=== PATIENT | male | born 1985 | race Caucasian/White ===

== ENCOUNTER 2016-11-06 20:17 | Emergency (ER) | payer OTHER, MEDICAID ==
[2016-11-06 20:26] VITALS: BP 112/70; PULSE 90; RESP 16; TEMP 97.7; O2SAT 93
--- NOTE | 2016-11-06 21:21 | EDPHY ---
H & P Stated Complaint: upper abd pain for weeks worse today Time Seen by Provider: 11/06/16 20:58 HPI/ROS: CHIEF COMPLAINT: Abdominal pain x9 months HISTORY OF PRESENT ILLNESS: 31-year-old male complaining of intermittent abdominal pain. He describes the abdominal pain is worse when he turns on his bluetooth device, the pain resolves when he turns off his bluetooth device in his car. He currently is asymptomatic. At no point has he developed nausea, vomiting, melena, hematochezia. He ate [employer] before coming to the ER which he tolerated well. Denies suicidal or homicidal ideation. Denies alcohol or drug use. 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 Appears to be in no acute distress. 2) HEAD: Normocephalic, atraumatic 3) HEENT: Sclera anicteric. 4) NECK: Full range of motion, no meningeal signs. 5) LUNGS: Clear auscultation bilaterally, no wheezes, no rhonchi, no retractions. 6) HEART: Regular rate and rhythm, no murmur, no heave, no gallop. 7) ABDOMEN: No guarding, no rebound, no focal tenderness, negative McBurney's, negative Ahumada's, negative Rovsing's, negative peritoneal sign, I am unable to elicit any abdominal pain on exam 8) MUSCULOSKELETAL: Moving all extremities, no focal areas of tenderness, no obvious trauma. No peripheral edema or discoloration. 9) BACK: noted scoliosis.No CVA tenderness. 10) SKIN: No rash, no petechiae. 11) Psychiatric: Patient is oriented X 3, there is no agitation. DIFFERENTIAL DIAGNOSIS: My differential diagnosis includes, but is not limited to, acute appendicitis, acute cholecystitis, bowel obstruction, acute pancreatitis, , gastritis and urinary tract infection. The patient understands that this diagnosis is provisional and can never be 100% accurate. This is a partial list of diagnoses considered. These considerations are based on history , physical exam, past history and reassessment. 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, spinal fusion, scoliosis, asthma, - Social History Smoking Status: Former smoker Constitutional: Initial Vital Signs Temperature (C) 36.5 C 11/06/16 20:23 Heart Rate 90 11/06/16 20:23 Respiratory Rate 16 11/06/16 20:23 Blood Pressure 112/70 11/06/16 20:23 O2 Sat (%) 93 11/06/16 20:23 O2 Delivery Mode Room Air Allergies/Adverse Reactions: Penicillins Allergy (Verified 11/06/16 20:26) Home Medications: Medication Instructions Recorded Albuterol 11/06/16 EXCEDRIN EXTRA STRENGTH CAPLET 11/06/16 Symbicort 80-4.5 Mcg Inhaler 11/06/16 Medical Decision Making ED Course/Re-evaluation: he is asymptomatic while in the ER and states that his pain happens when he turns on his bluetooth device. I do not think the patient meets criteria for mental health hold. Doubt acute surgical abdominal pathology. Doubt acute appendicitis, doubt acute pancreatitis, doubt acute cholecystitis. Do not identify emergent condition requiring further evaluation or diagnostic station wrist department. However, I did emphasize and recommend he establish primary care and follow up with a shipyard painting supervisor. Departure - Departure Disposition: Home, Routine, Self-Care Clinical Impression: Abdominal pain Qualifiers: Abdominal location: generalized Qualified Code(s): R10.84 - Generalized abdominal pain Condition: Good Instructions: Acute Abdominal Pain (ED) Referrals: David Loyd DO [Medical Doctor] - 2-3 days, call for appt. (Dr. David Loyd is a primary care provider) Sae Larios MD [[facility] [place]] - 2-3 days, call for appt. (Dr. Larios is a shipyard painting supervisor)
== END 2016-11-06 21:15 | disposition home or self-care (01) ==
DX: R10.84 Generalized abdominal pain (principal); J45.909 Unspecified asthma, uncomplicated; Z87.891 Personal history of nicotine dependence

== ENCOUNTER 2016-11-28 22:50 | Emergency (ER) | payer OTHER, MEDICAID ==
--- NOTE | 2016-11-28 23:07 | CPEKG ---
Heart Rate: 90 RR Interval: 667 P-R Interval: 128 QRSD Interval: 92 QT Interval: 368 QTC Interval: 451 P [place]: 76 QRS [place]: 90 T Wave [place]: -9 EKG Severity - ABNORMAL ECG - EKG Impression: SINUS RHYTHM EKG Impression: PROBABLE RVH W/ SECONDARY REPOL ABNORMALITY Electronically Signed By: Mague Quintanilla 29-Nov-2016 06:05:13
--- NOTE | 2016-11-28 23:11 | EDPHY ---
H & P Stated Complaint: chest pain sob Time Seen by Provider: 11/28/16 22:58 HPI/ROS: HPI The patient presents with chest pain and shortness of breath which have been present intermittently for the last several months. He feels a left-sided pressure in his chest intermittently. For the last 2 weeks he has been awaking with shortness of breath lasting for about 20 minutes and resolving on its own. Tonight for about 20 minutes he had episode of numbness in his left chest associated with the tensing of his jaw he says. This is never happened before and was concerning to him so he presented to the emergency room. He does not have any nausea, dizziness, diaphoresis REVIEW OF SYSTEMS Constitutional: No fever, no chills. Eyes: No discharge. ENT: No sore throat. Cardiovascular: Positive for chest pain, no palpitations. Respiratory: No cough, no shortness of breath. Gastrointestinal: No abdominal pain, no vomiting. Genitourinary: No hematuria. Musculoskeletal: No back pain. Skin: No rashes. Neurological: No headache. 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, no tobacco use FHx: Father with hypertension, no history of CAD PHYSICAL General Appearance: Alert, no distress Eyes: Pupils equal and round no pallor or injection ENT, Mouth: Mucous membranes moist Respiratory: There are no retractions, lungs are clear to auscultation Cardiovascular: Regular rate and rhythm Gastrointestinal: Abdomen is soft and non-tender, no masses, bowel sounds normal Neurological: A&O, moves all extremities Skin: Warm and dry, no rashes Musculoskeletal: Neck is supple non tender Extremities: symmetrical, full range of motion Psychiatric: Patient is oriented X 3, there is no agitation Source: Patient Exam Limitations: No limitations - Personal History Current Tetanus/Diphtheria Vaccine: Yes Current Tetanus Diphtheria and Acellular Pertussis (TDAP): Yes - Medical/Surgical History Hx Asthma: Yes Hx Chronic Respiratory Disease: No Hx Diabetes: No Hx Cardiac Disease: No Hx Renal Disease: No Hx Cirrhosis: No Hx Alcoholism: No Hx HIV/AIDS: No Hx Splenectomy or Spleen Trauma: No Other PMH: [place] when born, spinal fusion, scoliosis, asthma, - Social History Smoking Status: Former smoker Constitutional: Initial Vital Signs Temperature (C) 36.4 C 11/28/16 22:53 Heart Rate 88 11/28/16 22:53 Respiratory Rate 18 11/28/16 22:53 Blood Pressure 101/63 11/28/16 22:53 O2 Sat (%) 93 11/28/16 22:53 O2 Delivery Mode Room Air Allergies/Adverse Reactions: Penicillins Allergy (Verified 11/06/16 20:26) Home Medications: Medication Instructions Recorded NK [No Known Home Meds] 11/28/16 Medical Decision Making - Diagnostics EKG Interpretation: EKG: Complete interpretation has been separately recorded in the [employer] archive. Summary impression: T-wave inversions in 3, AVF, V1 through V3, Q- waves present in lead 3 Imaging Results: Imaging Impressions Chest X-Ray 11/28/16 23:06 Impression: Nothing acute identified. Differential Diagnosis: This is a 31-year-old male with history of neuroblastoma, scoliosis status post spinal fusion who presents with intermittent shortness of breath for the last 2 weeks and chest pain, now with 20 minutes of increased left-sided chest pressure with numbness to his left chest. Differential diagnosis includes ACS, PE, musculoskeletal pain, GERD. In the emergency room, patient's symptoms resolved spontaneously. Chest x-ray was unremarkable, EKG did show some T-wave inversions, it is unclear if these are new or old. Because of this, labs were ordered and were unremarkable including a D-dimer and troponin. I feel his pain is likely muscular. I plan to discharge him with follow up with primary care. - Data Points Laboratory Results: Laboratory Results 11/28/16 23:45 11/28/16 23:45 11/28/16 11/28/16 11/28/16 23:45 23:45 23:45 WBC 8.64 10^3/uL 10^3/uL (3.80-9.50) RBC 5.42 10^6/uL 10^6/uL (4.40-6.38) Hgb 16.8 g/dL g/dL (13.7-17.5) Hct 47.2 % % (40.0-51.0) MCV 87.1 fL fL (81.5-99.8) MCH 31.0 pg pg (27.9-34.1) MCHC 35.6 g/dL g/dL (32.4-36.7) RDW 12.3 % % (11.5-15.2) Plt Count 285 10^3/uL 10^3/uL (150-400) MPV 9.3 fL fL (8.7-11.7) Neut % (Auto) 63.0 % % (39.3-74.2) Lymph % (Auto) 28.2 % % (15.0-45.0) [place] % (Auto) 6.9 % % (4.5-13.0) Eos % (Auto) 0.8 % % (0.6-7.6) Baso % (Auto) 0.8 % % (0.3-1.7) Nucleat RBC Rel Count 0.0 % % (0.0-0.2) Absolute Neuts (auto) 5.43 10^3/uL 10^3/uL (1.70-6.50) Absolute Lymphs (auto) 2.44 10^3/uL 10^3/uL (1.00-3.00) Absolute Monos (auto) 0.60 10^3/uL 10^3/uL (0.30-0.80) Absolute Eos (auto) 0.07 10^3/uL 10^3/uL (0.03-0.40) Absolute Basos (auto) 0.07 10^3/uL 10^3/uL (0.02-0.10) Absolute Nucleated RBC 0.00 10^3/uL 10^3/uL (0-0.01) Immature Gran % 0.3 % % (0.0-1.1) Immature Gran # 0.03 10^3/uL 10^3/uL (0.00-0.10) D-Dimer < 0.27 ug/mLFEU ug/mLFEU (0.00-0.50) Sodium 142 mEq/L mEq/L (134-144) Potassium 4.2 mEq/L mEq/L (3.5-5.2) Chloride 102 mEq/L mEq/L (97-110) Carbon Dioxide 25 mEq/l mEq/l (22-31) Anion Gap 15 mEq/L mEq/L (8-16) BUN 18 mg/dL mg/dL (7-23) Creatinine 0.9 mg/dL mg/dL (0.7-1.3) Estimated GFR > 60 Glucose 115 mg/dL H mg/dL (70-100) Calcium 10.2 mg/dL mg/dL (8.5-10.4) Troponin I < 0.012 ng/mL ng/mL (0-0.034) Departure - Departure Disposition: Home, Routine, Self-Care Clinical Impression: Shortness of breath Chest pain Qualifiers: Chest pain type: unspecified Qualified Code(s): R07.9 - Chest pain, unspecified Condition: Good Instructions: Chest Pain (ED) Additional Instructions: Please follow-up with the primary care doctor. Return to the ER if your worse in any way. Referrals: Teresa Meyers MD [Medical Doctor] - As per Instructions
[2016-11-29 00:03] LABS: % IMMATURE GRANULYOCYTES 0.3 % (0.0-1.1); ABSOLUTE IMMATURE GRANULOCYTES 0.03 10^3/uL (0.00-0.10); ADD DIFF? NO; ADD MORPH? NO; ADD SCAN? NO; ATYPICAL LYMPHOCYTE FLAG 0 (0-99); FRAGMENT RBC FLAG 0 (0-99); HEMATOCRIT 47.2 % (40.0-51.0); HEMOGLOBIN 16.8 g/dL (13.7-17.5); LEFT SHIFT FLG 0 (0-99); LIPEMIA HEMOLYSIS FLAG 90 (0-99); MEAN CELL HEMOGLOBIN CONCENTR. 35.6 g/dL (32.4-36.7); MEAN CELL VOLUME 87.1 fL (81.5-99.8); MEAN PLATELET VOLUME 9.3 fL (8.7-11.7); PLATELET CLUMPS FLAG 0 (0-99); PLATELET COUNT 285 10^3/uL (150-400); RED BLOOD CELL COUNT 5.42 10^6/uL (4.40-6.38); RED CELL DISTRIBUTION WIDTH 12.3 % (11.5-15.2)
[2016-11-29 00:23] LABS: TROPONIN I < 0.012 ng/mL (0-0.034)
[2016-11-29 00:34] LABS: ANION GAP 15 mEq/L (8-16); CALCIUM 10.2 mg/dL (8.5-10.4); CARBON DIOXIDE 25 mEq/l (22-31); CHLORIDE 102 mEq/L (97-110); CREATININE 0.9 mg/dL (0.7-1.3); GLOMERULAR FILTRATION RATE > 60; GLUCOSE 115 mg/dL (70-100); POTASSIUM 4.2 mEq/L (3.5-5.2); SODIUM 142 mEq/L (134-144)
[2016-11-29 01:00] VITALS: BP 107/67; PULSE 86; RESP 20; TEMP 97.9; O2SAT 94
--- NOTE | 2016-12-02 07:39 | CPEKG ---
Heart Rate: 81 RR Interval: 741 P-R Interval: 120 QRSD Interval: 96 QT Interval: 376 QTC Interval: 437 P [place]: 92 QRS [place]: 90 T Wave [place]: -7 EKG Severity - ABNORMAL ECG - EKG Impression: SINUS RHYTHM EKG Impression: PROBABLE RVH W/ SECONDARY REPOL ABNORMALITY EKG Impression: BORDERLINE INFERIOR Q WAVES Electronically Signed By: Micah Basurto 02-Dec-2016 15:50:32
== END 2016-11-29 01:00 | disposition home or self-care (01) ==
DX: R06.02 Shortness of breath (principal); R07.9 Chest pain, unspecified; J45.909 Unspecified asthma, uncomplicated; Z87.891 Personal history of nicotine dependence